=== PATIENT | male | born 1970 | race Caucasian/White ===

== ENCOUNTER 2018-07-18 08:57 | Emergency (ER) | payer OTHER ==
[2018-07-18] MEDS ORDERED: DIPHTH,PERTUSS(ACELL),TET 0.5 ML DISP.SYRIN IM ONE (09:07)
[2018-07-18 09:18] VITALS: TEMP 98.5; BMI 34.7
--- NOTE | 2018-07-18 09:22 | PDOC ---
History of Present Illness - General Chief Complaint: Laceration Stated Complaint: FINGER LACERATION Time Seen by Provider: 07/18/18 09:01 - History of Present Illness Initial Comments: 07/18/18 09:17 47 M with no PMH presenting with L 4th digit avulsion. 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 Pt was wearing glove at the time but felt "the fingertip get sliced off". Pt denies any other injury. Past History - Past Medical History Allergies/Adverse Reactions: Allergies Allergy/AdvReac Type Severity Reaction Status Date / Time No Known Allergies Allergy Verified 06/08/15 10:37 Home Medications: Ambulatory Orders NK [No Known Home Medication] 06/30/14 - Surgical History Abdominal Surgery: Yes (HERNIA REPAIR) - Suicide/Smoking/Psychosocial Hx Smoking History: Never smoked Hx Alcohol Use: Yes (occasional) Drug/Substance Use Hx: No Review of Systems - Review of Systems Comments:: 07/18/18 09:23 "GENERAL/CONSTITUTIONAL: No fever or chills. No weakness. HEAD, EYES, EARS, NOSE AND THROAT: No change in vision. No ear pain or discharge. No sore throat. CARDIOVASCULAR: No chest pain or shortness of breath. RESPIRATORY: No cough, wheezing, or hemoptysis. GASTROINTESTINAL: No nausea, vomiting, diarrhea or constipation. GENITOURINARY: No dysuria, frequency, or change in urination. MUSCULOSKELETAL: + L 4th digit laceration, No joint or muscle swelling or pain. No neck or back pain. SKIN: No rash NEUROLOGIC: No headache, vertigo, loss of consciousness, or change in strength/ sensation. ENDOCRINE: No increased thirst. No abnormal weight change. HEMATOLOGIC/LYMPHATIC: No anemia, easy bleeding, or history of blood clots. ALLERGIC/IMMUNOLOGIC: No hives or skin allergy. *Physical Exam - Physical Exam Comments: 07/18/18 09:23 "GENERAL: Awake, alert, and fully oriented, in no acute distress. HEAD: No signs of trauma EYES: PERRLA, EOMI, sclera anicteric, conjunctiva clear ENT: Auricles normal inspection, hearing grossly normal, nares patent, oropharynx clear without exudates. Moist mucosa NECK: Nontender, no stepoffs, Normal ROM, supple, no lymphadenopathy, JVD, or masses LUNGS: Breath sounds equal, clear to auscultation bilaterally. No wheezes, and no crackles HEART: Regular rate and rhythm, normal S1 and S2, no murmurs, rubs or gallops ABDOMEN: Soft, nontender, normoactive bowel sounds. No guarding, no rebound. No masses EXTREMITIES: + L 4th digit partial avulsion at DIP joint NEUROLOGICAL: Cranial nerves II through XII intact. 5/5 strength and sensation in all extremities, Normal speech, normal gait, normal cerebellar function SKIN: Warm, Dry, normal turgor, no rashes or lesions noted. ED Treatment Course - RADIOLOGY Radiology Studies Ordered: Category Date Time Status HAND- RIGHT [RAD] Stat Radiology 07/18/18 09:06 Ordered Medical Decision Making - Medical Decision Making 07/18/18 09:25 47 M with L 4th digit fingertip avulsion. Likely fx as well. - XR L hand - Tdap - Hand consult 07/18/18 10:23 XR w fracture Pt with partial amputation Spoke w Dr. Burton, who recommends transfer for hand specialist [facility] transfer center contacted Pt accepted for transfer by Dr. Juan, orthopedic surgeon *DC/Admit/Observation/Transfer Diagnosis at time of Disposition: Partial traumatic transphalangeal amputation of finger - Discharge Dispostion Disposition: TRANSFER ACUTE CARE/OTHER HOSP Condition at time of disposition: Good - Referrals Referrals: Mega Ayala MD, MD [Primary Care Provider] - - Patient Instructions - Post Discharge Activity - Transfer to Acute Care Facility Receiving Facility: [facility]. - Attestations Physician Attestion: 07/18/18 10:50 I, Dr. Dashawn Garcia MD, attest that this document has been prepared under my direction and personally reviewed by me in its entirety. I further attest, that it accurately reflects all work, treatment, procedures and medical decision -making performed by me.
[2018-07-18 10:33] VITALS: BP 167/110; PULSE 92
== END 2018-07-18 11:22 | disposition short-term general hospital (02) ==
LOC: FER 08:57
PROC: 3E0234Z Introduction of Serum, Toxoid and Vaccine into Muscle, Percutaneous Approach (ICD-10-PCS; principal; 2018-07-18)
DX: S68.625A Partial traumatic transphalangeal amputation of left ring finger, initial encounter (principal); W23.0XXA Caught, crushed, jammed, or pinched between moving objects, initial encounter; Y93.89 Activity, other specified; Y92.9 Unspecified place or not applicable; Y99.0 Civilian activity done for income or pay
CPT/HCPCS: 73130-TC-LR-FY; 99283-25